=== PATIENT | female | born 1980 | race Caucasian/White ===

== ENCOUNTER 2016-08-01 07:03 | Emergency (ER) | payer OTHER ==
[2016-08-01 07:58] LABS: RED BLOOD COUNT 5.32 M/UL (4.00-5.10); WHITE BLOOD COUNT 12.3 K/UL (4.5-11.0)
[2016-08-01 08:20] LABS: BUN/CREATININE RATIO 14 (0-10)
== END 2016-08-01 11:50 | disposition home or self-care (01) ==
LOC: ER1 07:03
PROVIDERS: Physician Assistant
DX: R10.11 Right upper quadrant pain (principal); R10.13 Epigastric pain; R11.2 Nausea with vomiting, unspecified; R19.7 Diarrhea, unspecified; Z90.49 Acquired absence of other specified parts of digestive tract
CPT/HCPCS: 36415; 80053; 81001; 82150; 83690; 85025; 93005; 96372; 96374; 96375; 96376; 99284; C9113; J0500; J2405; J7030; J7050; Q9962

== ENCOUNTER 2020-04-20 10:23 | Emergency (ER) | payer BC ==
[~2020-04-20 10:23] MED LIST: CYCLOBENZAPRINE10 MG PO; NORCO 5-325 TA1 EACH PO; NORCO 7.5-3251 EACH PO; PERCOCET 7.5-31 EACH PO; PROTONIX40 MG PO; STOOL SOFTENER250 MG PO; TORADOL 10 MG T10 MG PO; TRINTELLIX PO; VYVANSE50 MG PO; ZITHROMAX TRI-500 MG PO; ZOFRAN4 MG PO
[2020-04-20 12:02] LABS: HEMOGLOBIN 15.7 gm/dl (12.3-15.3); RED BLOOD COUNT 5.17 M/UL (4.00-5.10); WHITE BLOOD COUNT 6.3 K/UL (4.5-11.0)
[2020-04-20 12:24] LABS: BUN/CREATININE RATIO 9 (0-10)
== END 2020-04-20 14:53 | disposition home or self-care (01) ==
LOC: ER1 10:23
PROVIDERS: Family Medicine
DX: R10.11 Right upper quadrant pain (principal); R63.0 Anorexia; R11.0 Nausea; Z87.19 Personal history of other diseases of the digestive system; Z90.49 Acquired absence of other specified parts of digestive tract; Z90.710 Acquired absence of both cervix and uterus; Z88.5 Allergy status to narcotic agent; Z88.8 Allergy status to other drugs, medicaments and biological substances
CPT/HCPCS: 80053; 81001; 83690; 85025; 96374; 96375; 99284; J1170; J2405; Q9967

== ENCOUNTER → 2020-05-21 | Outpatient (CLI) | payer BC | LOC: KOH-I 13:29 | DX: M54.5 Low back pain (principal); R10.2 Pelvic and perineal pain; R20.0 Anesthesia of skin; M51.27 Other intervertebral disc displacement, lumbosacral region; M48.07 Spinal stenosis, lumbosacral region; M51.26 Other intervertebral disc displacement, lumbar region; S39.012A Strain of muscle, fascia and tendon of lower back, initial encounter; X58.XXXA Exposure to other specified factors, initial encounter | CPT/HCPCS: 72148; 72195 ==

== ENCOUNTER → 2020-06-25 | Outpatient (CLI) | payer BC | LOC: EXRD 09:01 | DX: M47.816 Spondylosis without myelopathy or radiculopathy, lumbar region (principal) | CPT/HCPCS: 72100 ==

== ENCOUNTER → 2020-08-25 | Outpatient (CLI) | payer BC | LOC: HEART 5 15:42 | DX: I20.9 Angina pectoris, unspecified (principal); R53.83 Other fatigue; R00.2 Palpitations; R06.02 Shortness of breath; I07.1 Rheumatic tricuspid insufficiency; I37.1 Nonrheumatic pulmonary valve insufficiency | CPT/HCPCS: 93306 ==

== ENCOUNTER → 2020-08-27 | Outpatient (CLI) | payer BC ==
[2020-08-27 13:05] LABS: HEMOGLOBIN 15.3 gm/dl (12.3-15.3); RED BLOOD COUNT 5.05 M/UL (4.00-5.10); WHITE BLOOD COUNT 5.8 K/UL (4.5-11.0)
[2020-08-27 13:27] LABS: BUN/CREATININE RATIO 9 (0-10)
== END ==
LOC: LAB 11:43
PROVIDERS: Physician Assistant
DX: E78.00 Pure hypercholesterolemia, unspecified (principal); R53.83 Other fatigue; R06.02 Shortness of breath; R00.2 Palpitations
CPT/HCPCS: 36415; 80053; 80061; 82607; 84436; 84443; 85025

== ENCOUNTER → 2020-09-03 | Outpatient (CLI) | payer BC | LOC: HEART 5 08-26 09:30 | DX: I20.9 Angina pectoris, unspecified (principal); R53.83 Other fatigue; R00.2 Palpitations; R06.02 Shortness of breath | CPT/HCPCS: 78452; A9502 ==

== ENCOUNTER → 2020-09-18 | Outpatient (CLI) | payer BC | LOC: EXRD 11:31 | DX: M43.6 Torticollis (principal); M50.323 Other cervical disc degeneration at C6-C7 level; M48.02 Spinal stenosis, cervical region | CPT/HCPCS: 72050 ==

== ENCOUNTER 2021-01-11 14:11 | Emergency (ER) | payer BC ==
[~2021-01-11] VITALS: Ht 162.6 cm; Wt 91.6 kg
== END 2021-01-11 17:15 | disposition home or self-care (01) ==
LOC: ER1 14:11
DX: U07.1 COVID-19 (principal); Z23 Encounter for immunization
CPT/HCPCS: 99283; M0243

== ENCOUNTER → 2021-04-20 | Outpatient (CLI) | payer BC | LOC: EXRD 10:42 | DX: R06.02 Shortness of breath (principal); R05.9 Cough, unspecified | CPT/HCPCS: 71046 ==

== ENCOUNTER → 2021-07-07 | Outpatient (CLI) | payer BC, OTHER | LOC: CT 12:38 | DX: N32.89 Other specified disorders of bladder (principal); R31.9 Hematuria, unspecified; R10.9 Unspecified abdominal pain | CPT/HCPCS: Q9967 ==

== ENCOUNTER → 2022-01-17 | Outpatient (CLI) | payer BC ==
[2022-01-17 10:52] LABS: HEMOGLOBIN 15.3 gm/dl (12.3-15.3); RED BLOOD COUNT 4.95 M/UL (4.00-5.10); WHITE BLOOD COUNT 7.5 K/UL (4.5-11.0)
[2022-01-17 11:12] LABS: BUN/CREATININE RATIO 12 (0-10)
[2022-01-18 08:14] LABS: HEMOGLOBIN A1C 5.3 % (4.8-5.6)
[2022-01-19 07:12] LABS: CHOLESTEROL, TOTAL 153 mg/dL (100-199); HDL CHOLESTEROL 46 mg/dL (>39); LDL CHOLESTEROL CALC 86 mg/dL (0-99); LDL/HDL RATIO 1.9 ratio (0.0-3.2); T. CHOL/HDL RATIO 3.3 ratio (0.0-4.4); TRIGLYCERIDES 118 mg/dL (0-149)
[2022-01-19 11:13] LABS: CREATININE, URINE 176.5 mg/dL (Not Estab.)
== END ==
LOC: LAB 10:12
PROVIDERS: Nurse Practitioner Family
DX: Z00.00 Encounter for general adult medical examination without abnormal findings (principal); M25.50 Pain in unspecified joint; Z13.1 Encounter for screening for diabetes mellitus; R10.13 Epigastric pain; E78.00 Pure hypercholesterolemia, unspecified; E78.5 Hyperlipidemia, unspecified; E53.8 Deficiency of other specified B group vitamins; E55.9 Vitamin D deficiency, unspecified; R06.02 Shortness of breath; R53.83 Other fatigue
CPT/HCPCS: 36415; 80053; 80061; 81001; 82043; 82570; 82607; 83036; 83880; 84439; 84443; 84550; 85025; 85379; 85652; 86038; 86060; 86140; 86141; 86403; 86431; 86617

== ENCOUNTER → 2022-01-21 | Outpatient (CLI) | payer BC | LOC: CT 11:09 | DX: R06.02 Shortness of breath (principal); R79.89 Other specified abnormal findings of blood chemistry | CPT/HCPCS: Q9967 ==